=== PATIENT | male | born 1960 | race Caucasian/White ===

== ENCOUNTER → 2016-10-27 | Day surgery (SDC) | payer BC ==
[~2016-10-27] MED LIST: ASPIRIN EC81 M1 PO; LIPITOR20 MG PO; LIPITOR40 MG PO; LISINOPRIL10 MG PO
--- NOTE | ~2016-10-27 | OR ---
Unit #: [id number] #: [id number] Patient: BRI YADAV JR [id number] [address] [address] [id number] MR#: [id number] NAME: BRI YADAV JR ROOM: Date of Procedure: 10/27/2016 Admission Date: 10/27/2016 Surgeon: Reza Garcia Jr., M.D. : 1960 Attending Physician: Reza Garcia Jr., M.D. Primary Care Physician: Evert Truong M.D. OPERATIVE REPORT INDICATIONS FOR PROCEDURE The patient is a 56-year-old white male, recently presented to the office complaining of a cyst of the right upper back as well as cyst at the hairline in the posterior neck. These have been increasing in size and causing some discomfort and pain. He is brought in this time for excision of these under local anesthesia as an outpatient. PREOPERATIVE DIAGNOSIS Chronic inflamed cyst of the right upper back and nape of the neck. POSTOPERATIVE DIAGNOSIS Chronic inflamed cyst of the right upper back and nape of the neck, noting approximately 1.5 cm cyst. ANESTHESIA 1% Xylocaine with epinephrine locally. PROCEDURE PERFORMED Excision of 2 cysts described above. DESCRIPTION OF PROCEDURE The patient was positioned in prone position. After being prepped and draped in routine fashion, he was anesthetized locally in the area of the cyst described above with 1% Xylocaine with epinephrine. Elliptical incisions were made around both the cyst with being totally excised from the surrounding tissue and down to the deeper subcutaneous. After they were completely removed, they were sent to pathology. Hemostasis was achieved with Bovie cautery and after hemostasis was achieved, wound irrigated. The deeper tissue in both wounds was approximated with interrupted 3-0 Vicryl sutures. The skin edges were approximated both with stainless-steel skin clips and skin stapling device. Sterile dressings were applied externally. Estimated blood loss minimal. No drains used. No complications. The patient was discharged in satisfactory condition. Dictated by... Reza Garcia Jr., M.D. JMB/ting TD: 10/27/2016 12:23 Unit #: [id number] #: [id number] Patient: BRI YADAV JR JOB #: [id number] OPERATIVE REPORT Page 1 of 1 X Reza Garcia MD X PROCEDURE OPERATIVE NOTE
== END | disposition home or self-care (01) ==
LOC: CSUR 08:06
DX: L72.0 Epidermal cyst (principal); Q82.8 Other specified congenital malformations of skin; I25.10 Atherosclerotic heart disease of native coronary artery without angina pectoris; K21.9 Gastro-esophageal reflux disease without esophagitis; I10 Essential (primary) hypertension; E78.5 Hyperlipidemia, unspecified; E66.9 Obesity, unspecified; Z68.29 Body mass index [BMI] 29.0-29.9, adult; Z79.82 Long term (current) use of aspirin; Z79.899 Other long term (current) drug therapy; Z95.5 Presence of coronary angioplasty implant and graft; Z98.890 Other specified postprocedural states
CPT/HCPCS: 88304